=== PATIENT | female | born 1950 | race Caucasian/White ===

== ENCOUNTER → 2016-09-24 | Outpatient (CLI) | payer OTHER, MEDICARE | LOC: FIMAGING 13:24 | DX: Z12.31 Encounter for screening mammogram for malignant neoplasm of breast (principal); Z85.3 Personal history of malignant neoplasm of breast; Z80.3 Family history of malignant neoplasm of breast | CPT/HCPCS: G0202-52 ==

== ENCOUNTER → 2016-10-02 | Outpatient (CLI) | payer OTHER, MEDICARE | LOC: FIMAGING 12:43 | PROVIDERS: ATTEND Family Medicine | DX: N63 Unspecified lump in breast (principal) | CPT/HCPCS: 76641; G0206 ==

== ENCOUNTER → 2017-03-17 | Outpatient (CLI) | payer OTHER, MEDICARE | LOC: FIMAGING 14:42 | PROVIDERS: ATTEND Physician Assistant Medical | DX: N64.89 Other specified disorders of breast (principal); Z85.3 Personal history of malignant neoplasm of breast | CPT/HCPCS: 76641; G0206 ==

== ENCOUNTER → 2017-07-30 | Outpatient (CLI) | payer OTHER, MEDICARE | LOC: FIMAGING 08:15 | PROVIDERS: ATTEND Family Medicine | DX: R10.10 Upper abdominal pain, unspecified (principal); R11.0 Nausea; R93.2 Abnormal findings on diagnostic imaging of liver and biliary tract; R18.8 Other ascites; R93.421 Abnormal radiologic findings on diagnostic imaging of right kidney; K80.20 Calculus of gallbladder without cholecystitis without obstruction ==

== ENCOUNTER → 2017-08-07 | Outpatient (CLI) | payer OTHER, MEDICARE ==
[~2017-08-07] MED LIST: IOPAMIDOL (ISOVUE-300) 100 ML BTL ONE
== END ==
LOC: FIMAGING 14:06
PROVIDERS: ATTEND Family Medicine
DX: N28.89 Other specified disorders of kidney and ureter (principal); R18.8 Other ascites; I70.0 Atherosclerosis of aorta; R79.89 Other specified abnormal findings of blood chemistry
CPT/HCPCS: 74178; Q9967

== ENCOUNTER → 2017-08-22 | Outpatient (CLI) | payer OTHER, MEDICARE ==
[~2017-08-22] MED LIST changes: +ALBUMIN 25% 100 ML SOLN IV ONE; -IOPAMIDOL (ISOVUE-300) 100 ML BTL ONE; +LIDOCAINE 1% 300 MG/30 ML SDV ONE
== END ==
LOC: FIMAGING 14:08
PROVIDERS: ATTEND Physician Assistant Medical
PROC: 0W9F3ZZ Drainage of Abdominal Wall, Percutaneous Approach (ICD-10-PCS; principal; 2017-08-22)
DX: R18.8 Other ascites (principal)
CPT/HCPCS: 49083; 88360; P9047

== ENCOUNTER → 2017-09-19 | Outpatient (CLI) | payer OTHER, MEDICARE ==
[~2017-09-19] MED LIST changes: -LIDOCAINE 1% 300 MG/30 ML SDV ONE
== END ==
LOC: FIMAGING 11:16
PROVIDERS: ATTEND Internal Medicine Hematology & Oncology
PROC: 0D9W3ZZ Drainage of Peritoneum, Percutaneous Approach (ICD-10-PCS; principal; 2017-09-19)
DX: R18.8 Other ascites (principal)
CPT/HCPCS: 49083; P9047; J1642

== ENCOUNTER → 2017-10-08 | Outpatient (CLI) | payer OTHER, MEDICARE ==
[~2017-10-08] MED LIST changes: -ALBUMIN 25% 100 ML SOLN IV ONE; +LIDOCAINE 1% 300 MG/30 ML SDV ONE
== END ==
LOC: FIMAGING 13:36
PROVIDERS: ATTEND Nurse Practitioner
PROC: 0W9G3ZZ Drainage of Peritoneal Cavity, Percutaneous Approach (ICD-10-PCS; principal; 2017-10-08)
DX: R18.0 Malignant ascites (principal)

== ENCOUNTER → 2017-10-10 | Outpatient (CLI) | payer OTHER, MEDICARE | LOC: FIMAGING 11:16 | PROVIDERS: ATTEND Internal Medicine Hematology & Oncology | DX: R92.8 Other abnormal and inconclusive findings on diagnostic imaging of breast (principal) ==

== ENCOUNTER → 2017-11-06 | Outpatient (CLI) | payer OTHER, MEDICARE | LOC: FIMAGING 14:58 | PROVIDERS: ATTEND Nurse Practitioner | PROC: 0W9F3ZZ Drainage of Abdominal Wall, Percutaneous Approach (ICD-10-PCS; principal; 2017-11-06) | DX: R18.8 Other ascites (principal) | CPT/HCPCS: 86304-90 ==

== ENCOUNTER → 2017-12-03 | Outpatient (CLI) | payer OTHER, MEDICARE | LOC: FIMAGING 13:33 | PROVIDERS: ATTEND Physician Assistant | DX: R14.0 Abdominal distension (gaseous) (principal) ==

== ENCOUNTER → 2018-01-26 | Outpatient (CLI) | payer OTHER, MEDICARE | LOC: FIMAGING 16:51 | PROVIDERS: ATTEND Nurse Practitioner | DX: R06.02 Shortness of breath (principal); Z53.09 Procedure and treatment not carried out because of other contraindication ==